=== PATIENT | female | born 1950 | race Caucasian/White ===

== ENCOUNTER → 2018-04-30 11:26 | Outpatient (CLI) | payer OTHER, SELFPAY ==
--- NOTE | 2018-04-30 | DI.MG.S_ITS ---
BILATERAL DIGITAL SCREENING MAMMOGRAM 3D/2D WITH CAD: 04/30/2018 CLINICAL: Routine screening. Comparison is made to exams dated: 05/16/2016 mammogram, 03/15/2015 mammogram - [facility], and 10/07/2012 mammogram - [facility]. The tissue of both breasts is heterogeneously dense. This may lower the sensitivity of mammography. Current study was also evaluated with a Computer Aided Detection (CAD) system. No significant masses, calcifications, or other findings are seen in either breast. There has been no significant interval change. IMPRESSION: NEGATIVE There is no mammographic evidence of malignancy. A 1 year screening mammogram is recommended. This exam was interpreted at Station ID: [id number]. NOTE: For mammograms, a report in lay terms will be sent to the patient. Approximately 15% of breast malignancies will not be visualized mammographically. In the management of a palpable breast mass, a negative mammogram must not discourage biopsy of a clinically suspicious lesion. Electronically Signed By: Benjamin sidhu/gigi:04/30/2018 21:30:34 letter sent: Normal Exam ACR BI-RADS Category 1: Negative 3341F
== END ==
PROVIDERS: PCP Family Medicine; Visit Provider Family Medicine
DX: Z12.31 Encounter for screening mammogram for malignant neoplasm of breast (principal)
CPT/HCPCS: 77063; 77067

== ENCOUNTER → 2018-05-19 09:15 | Outpatient (CLI) | payer OTHER, SELFPAY ==
[2018-05-19 10:15] LABS: Hemoglobin 13.3 g/dL (12.0-16.0); Mean Corpuscular Volume 94.1 fL (80-100); Platelet Count 212 X10^3/uL (150-400); Red Blood Cell Count 4.15 X10^6/uL (4.0-5.2); White Blood Cell Count 3.4 X10^3/uL (4.5-11.0)
[2018-05-19 10:24] LABS: Neutrophils Absolute Manual 1870 /uL (3000-5900); Total Cells Counted 100
[2018-05-19 10:25] LABS: Morphology Comment Normal Morphology
[2018-05-19 10:30] LABS: Alanine Aminotransferase 28 IU/L (9-52); Albumin 4.6 g/dL (3.5-5.0); Albumin Globulin Ratio 1.5 (1.0-2.8); Alkaline Phosphatase 75 U/L (38-126); Aspartate Aminotransferase 29 IU/L (14-36); BUN Creatinine Ratio 27.5 (6-22); Bilirubin Total 0.7 mg/dL (0.2-1.3); Blood Urea Nitrogen 22 mg/dL (7-17); Calcium 9.5 mg/dL (8.4-10.2); Carbon Dioxide 30 mmol/L (22-32); Chloride 102 mmol/L (98-107); Cholesterol 230 mg/dL (140-199); Estimated Glomerular Filt Rate > 60.0 mL/min (>60); Glucose 92 mg/dL (80-110); HDL Cholesterol 72 mg/dL (40-60); HEMOLYSIS < 15 (0-50); LDL Cholesterol Calculated 145 mg/dL (<100); Potassium 4.3 mmol/L (3.4-5.1); Sodium 140 mmol/L (137-145); Total Protein 7.6 g/dL (6.3-8.2); Triglycerides 66 mg/dL (35-150)
[2018-05-19 10:59] LABS: TSH w/ Reflex to FT4 1.29 uIU/mL (0.47-4.68)
[2018-05-19 11:17] LABS: Hep C Virus Ab w/Reflex Quant NEGATIVE s/c (NEGATIVE)
== END ==
PROVIDERS: PCP Family Medicine; Visit Provider Family Medicine
DX: D72.829 Elevated white blood cell count, unspecified (principal); E78.5 Hyperlipidemia, unspecified; Z11.59 Encounter for screening for other viral diseases
CPT/HCPCS: 36415; 80053; 80061; 84443; 85025; 86803

== ENCOUNTER 2018-06-30 11:47 | Day surgery (SDC) | payer OTHER, SELFPAY ==
[2018-06-30] VITALS (7 sets, daily range): BP systolic 89–127; BP diastolic 53–77; PULSE 71–92; RESP 10–16; TEMP 36.6–36.9; O2SAT 97–100; BMI 19.9
--- NOTE | 2018-06-30 | PATH_ITS ---
[facility] Accession Number: [id number] . 01 Material submitted: . MUCOSAL IRREGULARITY AT 80CM . 02 Diagnosis: Colon, Mucosal Irregularity at 80 cm, Biopsy: Benign lymphoid aggregate. MRV/07/01/2018 . 02 Electronically signed: . Susan Lewis MD, Pathologist NPI- [id number] . 01 Gross description: . Received one formalin-filled container labeled with the patient's name and labeled mucosal irregularity at 80 cm. The specimen consists of a 0.5 cm portion of tissue, entirely submitted in one cassette. ([id number]) /FRR . 02 Pathologist provided ICD-10: K63.5 . 02 CPT . 584994 Performed at: 01 [facility] [address] [id number] MD Arnold Cantu MD Phone: [phone] Performed at: 02 [facility] [address] [place], [place] [id number] MD Susan Lewis MD Phone: [phone]
[2018-06-30] MEDS: SODIUM CHLORIDE 0.9% 1,000 ML 70 ML IV (13:42)
--- NOTE | 2018-06-30 13:58 | PM.HP.1 ---
History of Present Illness Date Patient Seen: 06/30/18 Time Patient Seen: 13:58 Chief complaint: [id number] SCREENING COLONOSCOPY Narrative: Wonderful 68-year-old lady here for screening colonoscopy. She denies any problems or symptoms related to the function of her GI tract and says she has a colonoscopy as part of a health maintenance program. She reports her last colonoscopy was 10 years ago and she remembers that it was normal. Patient History Social History marital status: household members: spouse Smoking Status: Never smoker alcohol intake: current (1 GLASS OF WINE A DAY ) substance use type: does not use Family & Social History Social History: household members spouse Tobacco & Substance use: Smoking Status Never smoker alcohol intake current Meds Home Medications Medication Instructions Recorded Confirmed Type ASCORBIC ACID (VITAMIN C) 1,000 mg PO QDAY #0 05/21/11 06/30/18 History CHOLECALCIFEROL (VITAMIN D3) 2,000 iu PO QDAY #0 05/21/11 03/02/18 History (Vitamin D) Fish Oil 2,000 mg PO QDAY #0 05/21/11 06/30/18 History Vitamin E (VITAMIN E) 400 units PO QDAY #0 sgl 01/06/13 06/30/18 History Zaheer's wort 300 mg capsule 300 mg PO DAILY 03/02/18 06/30/18 History calcium 200 tab PO DAILY tab 03/02/18 06/30/18 History carbonate,citrate-magnesium oxide 200 mg calcium-50 mg tablet conjugated estrogens 0.625 mg/gram See Rx Instructions .ROUTE 03/02/18 06/30/18 History vaginal cream .COMPLEX gram glucosamine HCl 1,500 mg tablet 1,500 mg PO DAILY 03/02/18 06/30/18 History phytonadione (vitamin K1) 100 mcg 100 mcg PO DAILY 03/02/18 06/30/18 History tablet prasterone (dhea) 50 mg tablet 50 mg PO DAILY 03/02/18 06/30/18 History Allergies Allergy/AdvReac Type Severity Reaction Status Date / Time No Known Allergies Allergy Uncoded 03/02/18 10:06 Review of Systems Review of Systems All systems reviewed & are unremarkable except as noted in HPI and below Exam Vital Signs (past 8 hours): - 06/30/18 13:14 Temperature 98.4 F Pulse Rate 92 H Respiratory Rate 16 Blood Pressure 127/77 Pulse Oximetry 100 Oxygen Delivery Method Room Air Narrative Exam Narrative: Very pleasant well-nourished well-developed lady who appears fit and younger than her stated age HEENT: Normocephalic and atraumatic, pupils equal round reactive to light accommodation with anicteric sclera lungs: Clear to auscultation bilaterally Heart: Regular rate and rhythm without murmur rub or gallop abdomen: Soft, nontender, active bowel sounds. Extremities: Warm and well perfused. No edema. Assessment & Plan Assessment & Plan narrative: Very pleasant 68-year-old lady who appears younger than her stated age here for a screening colonoscopy. We discussed the risks and benefits of the procedure the patient expressed a desire to complete it today.
[2018-06-30] MEDS: MIDAZOLAM 5 MG/5 ML VIAL IV (14:13)
[2018-06-30] MEDS: fentaNYL 250 MCG/5 ML INJ IV (14:14)
--- NOTE | 2018-06-30 14:30 | P.OP_ITS ---
Operative Date/Time/Diagnoses Date of procedure: 06/30/18 Time of procedure: 14:24 Pre-op diagnosis: Screening Post-op diagnosis: same Procedure & Clinicians Procedure: colonoscopy to the cecum with mucosal biopsy x1 Same procedure as scheduled: Yes Indications: Last colonoscopy 10 years ago Surgeon: Alanna Hardy Anesthesia Type: Sedation (Versed 4 mg, Fentanyl 200 mcg) Operative Notes Findings: 1. Excellent prep 2. Small mucosal irregularity at 80 cm from the anal verge - biopsy obtained with cold forceps and retained for pathology 3. Diverticulosis in a short segment from 25 to 30 cm with scattered small po ckets 4. Otherwise normal mucosa 5. Grade 2 internal hemorrhoids Specimen(s): other (mucosal biopsy) Estimated Blood Loss (mL): 1 Procedure in detail: After obtaining informed consent, the patient was brought to the GI suite and placed in the left lateral decubitus position on the examination table. After placement of appropriate monitors, the patient was given incremental doses of Versed and Fentanyl until an appropriate level of sedation was achieved. A time out was held per SCOAP protocol. A digital rectal examination was performed and did not reveal any masses or obstructing lesions. The colonoscope was gently passed into the patient's anus and the entire colon navigated to the level of the cecum with minimal difficulty. Once in the cecum, the scope was withdrawn being sure to go before and beyond all mucosal folds and prominences and get an excellent examination. The findings are noted above. At the level of the rectal vault, the scope was retroflexed and the internal anal canal was examined. The scope was straightened and air aspirated from the colon. The instrument was removed from the patient's body and the procedure was concluded. The patient was allowed to awaken from sedation without difficulty and taken to the post-anesthesia care unit in good condition. total sedation time was 26 min total withdrawal time was 11 min 12 sec Complications: none Condition: stable Disposition: PACU Plan for aftercare: 1. Discharge to home 2. Plan for next colonoscopy in 5-10 years dependent on final pathology 3. We will contact you with final pathology and any additional recommendations
== END 2018-06-30 15:07 | disposition home or self-care (01) ==
PROVIDERS: PCP Family Medicine; Visit Provider Surgery
PROC: 0DJD8ZZ Inspection of Lower Intestinal Tract, Via Natural or Artificial Opening Endoscopic (ICD-10-PCS; CPT 45378; principal; 2018-06-30 14:00)
DX: Z12.11 Encounter for screening for malignant neoplasm of colon (principal); K57.30 Diverticulosis of large intestine without perforation or abscess without bleeding; K64.1 Second degree hemorrhoids; K63.5 Polyp of colon
CPT/HCPCS: 45380; 99152; 99153; J2250; J3010

== ENCOUNTER → 2019-09-30 14:07 | Outpatient (CLI) | payer OTHER, SELFPAY ==
--- NOTE | 2019-09-30 14:10 | DI.RAD.S_ITS ---
PROCEDURE: XR LUMBAR SPINE 2-3V INDICATIONS: right posterior hip pain TECHNIQUE: 2 views of the lumbar spine were acquired. COMPARISON: None. FINDINGS: Bones: 5 [id number] vertebrae are present. There is normal bony alignment. No vertebral body compression fractures. Small osteophytes are present throughout the lumbar spine. Intervertebral disc space narrowing and sclerosis is present at L5-S1. No suspicious bony lesions. Soft tissues: Overlying bowel gas pattern is normal. No suspicious soft tissue calcifications. IMPRESSION: Mild degenerative change. Dictated by: Kim Cali M.D. on 09/30/2019 at 16:48 Approved by: Kim Cali M.D. on 09/30/2019 at 16:48
--- NOTE | 2019-09-30 14:10 | DI.RAD.S_ITS ---
PROCEDURE: XR HIP W PEL IF DONE RT 2V INDICATIONS: right posterior hip pain TECHNIQUE: AP pelvis with lateral view(s) of the right hip(s). COMPARISON: None. FINDINGS: Bones: No fractures or dislocations. Pelvic ring appears intact. No suspicious bony lesions. Soft tissues: The visualized bowel gas pattern is normal. No suspicious soft tissue calcifications. IMPRESSION: No source of right hip pain is found. Dictated by: Dominic Sanford M.D. on 09/30/2019 at 15:22 Approved by: Dominic Sanford M.D. on 09/30/2019 at 15:22
== END ==
PROVIDERS: PCP Family Medicine; Referring Provider Family Medicine; Visit Provider Family Medicine
DX: M25.551 Pain in right hip (principal); M47.817 Spondylosis without myelopathy or radiculopathy, lumbosacral region; G89.29 Other chronic pain
CPT/HCPCS: 72110; 73502

== ENCOUNTER → 2020-05-03 10:49 | Outpatient (CLI) | payer OTHER, SELFPAY ==
--- NOTE | 2020-05-03 | DI.MG.S_ITS ---
BILATERAL DIGITAL SCREENING MAMMOGRAM 3D/2D WITH CAD: 05/03/2020 CLINICAL: Routine screening. Comparison is made to exams dated: 04/30/2018 mammogram, 05/16/2016 mammogram, and 03/15/2015 mammogram - [facility]. The tissue of both breasts is heterogeneously dense. This may lower the sensitivity of mammography. Current study was also evaluated with a Computer Aided Detection (CAD) system. No significant masses, calcifications, or other findings are seen in either breast. There has been no significant interval change. IMPRESSION: NEGATIVE There is no mammographic evidence of malignancy. A 1 year screening mammogram is recommended. This exam was interpreted at Station ID: [id number]. NOTE: For mammograms, a report in lay terms will be sent to the patient. Approximately 15% of breast malignancies will not be visualized mammographically. In the management of a palpable breast mass, a negative mammogram must not discourage biopsy of a clinically suspicious lesion. Electronically Signed By: Arnold west/gigi:05/03/2020 11:46:48 letter sent: Normal Exam ACR BI-RADS Category 1: Negative 3341F
== END ==
PROVIDERS: PCP Family Medicine; Referring Provider Family Medicine; Visit Provider Family Medicine
DX: Z12.31 Encounter for screening mammogram for malignant neoplasm of breast (principal)
CPT/HCPCS: 77063; 77067

== ENCOUNTER → 2021-05-26 10:59 | Outpatient (CLI) | payer OTHER, SELFPAY ==
--- NOTE | 2021-05-26 | DI.MG.S_ITS ---
BILATERAL DIGITAL SCREENING MAMMOGRAM 3D/2D WITH CAD: 05/26/2021 CLINICAL: Routine screening. Comparison is made to exams dated: 05/03/2020 mammogram, 04/30/2018 mammogram, and 05/16/2016 mammogram - [facility]. The tissue of both breasts is heterogeneously dense. This may lower the sensitivity of mammography. Current study was also evaluated with a Computer Aided Detection (CAD) system. No significant masses, calcifications, or other findings are seen in either breast. There has been no significant interval change. IMPRESSION: NEGATIVE There is no mammographic evidence of malignancy. A 1 year screening mammogram is recommended. This exam was interpreted at Station ID: [id number]. NOTE: For mammograms, a report in lay terms will be sent to the patient. Approximately 15% of breast malignancies will not be visualized mammographically. In the management of a palpable breast mass, a negative mammogram must not discourage biopsy of a clinically suspicious lesion. Electronically Signed By: Ted rhoades/gigi:05/28/2021 07:57:26 letter sent: Normal Exam ACR BI-RADS Category 1: Negative 3341F
== END ==
PROVIDERS: PCP Family Medicine; Referring Provider Family Medicine; Visit Provider Family Medicine
DX: Z12.31 Encounter for screening mammogram for malignant neoplasm of breast (principal)
CPT/HCPCS: 77063; 77067